=== PATIENT | male | born 1990 | race Caucasian/White ===

== ENCOUNTER 2017-04-27 22:15 | Emergency (ER) | payer OTHER ==
[~2017-04-27] VITALS: Ht 170.2 cm; Wt 79.4 kg
== END 2017-04-28 00:27 | disposition home or self-care (01) ==
LOC: ER 22:15
DX: J11.1 Influenza due to unidentified influenza virus with other respiratory manifestations (principal)

== ENCOUNTER → 2018-04-03 | Emergency (ER) | payer OTHER ==
[~2018-04-03] VITALS: Ht 170.2 cm; Wt 81.6 kg
== END | disposition left against medical advice (07) ==
LOC: ER 14:27
DX: Z53.20 Procedure and treatment not carried out because of patient's decision for unspecified reasons (principal)